=== PATIENT | female | born 1945 | race Caucasian/White ===

== ENCOUNTER 2020-04-03 06:09 | Day surgery (SDC) | payer MEDICARE, BC ==
[2020-04-02 14:33] LABS: BASOPHILS # (AUTO) 0.1 X10'3 (0-0.2); BASOPHILS % (AUTO) 0.9 % (0-1); EOSINOPHILS # (AUTO) 0.2 X10'3 (0-0.9); EOSINOPHILS % (AUTO) 2.6 % (0-6); HEMATOCRIT 41.7 % (35.0-45.0); HEMOGLOBIN 13.7 g/dl (12.0-16.0); LYMPHOCYTES # (AUTO) 2.5 X10'3 (1.1-4.8); LYMPHOCYTES % (AUTO) 36.5 % (21-51); MEAN CORPUSCULAR HEMOGLOBIN 31.3 PG (27.0-31.0); MEAN CORPUSCULAR HGB CONC 32.8 g/dL (33.0-36.5); MEAN CORPUSCULAR VOLUME 95.4 FL (78-98); MEAN PLATELET VOLUME 9.6 FL (7.4-10.4); MONOCYTES # (AUTO) 0.6 X10'3 (0-0.9); NEUTROPHILS # (AUTO) 3.5 X10'3 (1.8-7.7); PLATELET COUNT 179 X10'3 (140-440); RED BLOOD COUNT 4.37 X10'6 (4.20-5.60); RED CELL DISTRIBUTION WIDTH 13.7 % (11.5-14.5); WHITE BLOOD COUNT 6.9 X10'3 (4.5-11.0)
[2020-04-02 14:41] LABS: ALBUMIN 3.5 G/DL (3.4-5.0); ANION GAP 4 (8-16); BLOOD UREA NITROGEN 23 MG/DL (7-18); BUN/CREATININE RATIO 16.9 (6.6-38.0); CALCIUM 9.4 MG/DL (8.5-10.1); CHLORIDE 105 MMOL/L (99-107); CREATININE 1.36 MG/DL (0.40-0.90); GLUCOSE 93 MG/DL (70-104); POTASSIUM 4.1 MMOL/L (3.5-5.1); SODIUM 142 MMOL/L (135-145); TOTAL CARBON DIOXIDE 32.9 MMOL/L (24-32); eGFR 38 ML/MIN
[2020-04-02 14:43] LABS: PARTIAL THROMBOPLASTIN TIME 25 SECONDS (22-32)
[~2020-04-03] VITALS: Ht 165.1 cm; Wt 89.4 kg
[2020-04-03] VITALS (13 sets, daily range): BP systolic 135–169; BP diastolic 40–57
[2020-04-03] MEDS ORDERED: LORazepam 0.5 MG tablet PO PRN (06:50)
[2020-04-03] MEDS ORDERED: diphenhydrAMINE 25mg capsule PO PRN (06:50)
[2020-04-03] MEDS ORDERED: normal saline 1,000 ML IV SCH (06:50)
[2020-04-03] MEDS ORDERED: LIDOcaine/PRILOcaine 5gm cream TP ONE (07:15)
[2020-04-03] MEDS ORDERED: TRIA1CAP6 PO (07:22)
[2020-04-03] MEDS ORDERED: LEVO125T8 PO (07:27)
[2020-04-03] MEDS ORDERED: nitroGLYCERIN-Tridil 50MG/D5W 250 ML IV ONE (07:27)
[2020-04-03] MEDS ORDERED: OMEP20TA23 PO (07:27)
[2020-04-03] MEDS ORDERED: midazolam 2 mg/2 ml injection ONE (07:28)
[2020-04-03] MEDS ORDERED: LIDOcaine 1% (10mg/ml)w/preservative injection 20ml MDV ONE (07:28)
[2020-04-03] MEDS ORDERED: heparin 1,000unit/ml 10ml vial 10 ML ONE (07:28)
[2020-04-03] MEDS ORDERED: iohexol 350 MG/ML 50ML vial IV ONE (07:28)
[2020-04-03] MEDS ORDERED: ASCO-283 PO (07:28)
[2020-04-03] MEDS ORDERED: verapamil 2.5 mg/ml inj IV ONE (07:28)
[2020-04-03] MEDS ORDERED: iohexol 350MG/ML 100ml bottle IV ONE (07:28)
[2020-04-03] MEDS ORDERED: fentaNYL/PF 50MCG/1 ML 2ML syringe ONE (07:28)
[2020-04-03] MEDS ORDERED: CALC1CAP18 PO (07:30)
[2020-04-03] MEDS ORDERED: MULT-1085 PO (07:31)
[2020-04-03] MEDS ORDERED: OMEG1CAP13 PO (07:33)
[2020-04-03] MEDS ORDERED: OLAN5TAB5 PO (07:34)
[2020-04-03] MEDS ORDERED: CLOM50CA2 PO (07:34)
[2020-04-03] MEDS ORDERED: ASPI-1265 PO (07:35)
[2020-04-03] MEDS ORDERED: ATEN-27 PO (07:36)
[2020-04-03] MEDS ORDERED: ROSU40TA PO (07:37)
[2020-04-03] MEDS ORDERED: atropine 0.1mg/ml 10ml syringe ONE (08:18)
[2020-04-03 08:56] LABS: ISTAT HGB ART 12.9 g/dl (12.0-16.0); ISTAT Hct ART 38 %PCV (35-48); ISTAT O2 SATURATION ARTERIAL 96 % (95-98); ISTAT SOURCE ART
[2020-04-03 08:56] LABS: ISTAT Hct MIX 37 %PCV (35-48); ISTAT O2 SATURATION MIX VENOUS 74 % (60-80); ISTAT SOURCE MIX
[2020-04-03] MEDS ORDERED: HYDROcodone/acetaminophen 10/325mg tab PO PRN (09:10)
[2020-04-03] MEDS ORDERED: normal saline 1000ml 1,000 ML IV SCH (09:10)
[2020-04-03] MEDS ORDERED: HYDROcodone/acetaminophen 5mg/325mg tablet PO PRN (09:10)
[2020-04-03] MEDS: ACETYLCYSTEINE 200 MG/1 ML 4 ML ORAL SOLUTION PO SCH ×2 (09:27→14:11)
== END 2020-04-03 15:00 | disposition home or self-care (01) ==
LOC: U 06:09 → SSTAY O 15:00
PROVIDERS: ATTEND Internal Medicine Cardiovascular Disease
DX: R94.39 Abnormal result of other cardiovascular function study (principal); I25.10 Atherosclerotic heart disease of native coronary artery without angina pectoris; I10 Essential (primary) hypertension; E78.5 Hyperlipidemia, unspecified; E03.9 Hypothyroidism, unspecified; E66.9 Obesity, unspecified; Z68.33 Body mass index [BMI] 33.0-33.9, adult; Z90.710 Acquired absence of both cervix and uterus; Z95.5 Presence of coronary angioplasty implant and graft; Z79.899 Other long term (current) drug therapy; Z79.82 Long term (current) use of aspirin; Z87.891 Personal history of nicotine dependence; Z82.49 Family history of ischemic heart disease and other diseases of the circulatory system; Z80.0 Family history of malignant neoplasm of digestive organs; Z82.3 Family history of stroke; Z79.01 Long term (current) use of anticoagulants
CPT/HCPCS: 36415; 80048; 82803; 85014; 85025; 85610; 85730; 93005; 93460; 93567; 99152; 99153; C1769; C1894; J0461; J1644; J2001; J2250; J3010; J7030; Q0163; Q9967; A5120; J3490

== ENCOUNTER 2020-10-07 06:08 | Day surgery (SDC) | payer MEDICARE, BC ==
[2020-10-06 14:20] LABS: BASOPHILS # (AUTO) 0.1 X10'3 (0-0.2); EOSINOPHILS # (AUTO) 0.1 X10'3 (0-0.9); EOSINOPHILS % (AUTO) 1.4 % (0-6); HEMATOCRIT 43.7 % (35.0-45.0); HEMOGLOBIN 14.6 g/dl (12.0-16.0); LYMPHOCYTES # (AUTO) 2.2 X10'3 (1.1-4.8); MEAN CORPUSCULAR HEMOGLOBIN 31.3 PG (27.0-31.0); MEAN CORPUSCULAR HGB CONC 33.4 g/dL (33.0-36.5); MEAN CORPUSCULAR VOLUME 93.8 FL (78-98); MEAN PLATELET VOLUME 7.8 FL (7.4-10.4); MONOCYTES # (AUTO) 0.8 X10'3 (0-0.9); MONOCYTES % (AUTO) 10.6 % (2-12); NEUTROPHILS # (AUTO) 4.1 X10'3 (1.8-7.7); PLATELET COUNT 326 X10'3 (140-440); RED BLOOD COUNT 4.66 X10'6 (4.20-5.60); RED CELL DISTRIBUTION WIDTH 13.2 % (11.5-14.5); WHITE BLOOD COUNT 7.3 X10'3 (4.5-11.0)
[2020-10-06 14:31] LABS: ANION GAP 6 (8-16); BLOOD UREA NITROGEN 13 MG/DL (7-18); BUN/CREATININE RATIO 9.1 (6.6-38.0); CALCIUM 11.2 MG/DL (8.5-10.1); CHLORIDE 99 MMOL/L (99-107); CREATININE 1.43 MG/DL (0.40-0.90); GLUCOSE 94 MG/DL (70-104); POTASSIUM 4.2 MMOL/L (3.5-5.1); SODIUM 136 MMOL/L (135-145); TOTAL CARBON DIOXIDE 31.1 MMOL/L (24-32); eGFR 36 ML/MIN
[2020-10-06 14:34] LABS: PARTIAL THROMBOPLASTIN TIME 24 SECONDS (22-32)
[2020-10-07] VITALS (10 sets, daily range): BP systolic 108–162; BP diastolic 39–94
[~2020-10-07] VITALS: Ht 162.6 cm; Wt 83.2 kg
[~2020-10-07 06:08] MED LIST: ASCO-283 PO; ASPI-1265 PO; ATEN-27 PO; CALC1CAP18 PO; CLOM50CA2 PO; LEVO125T8 PO; MULT-1085 PO; OLAN5TAB5 PO; OMEG1CAP13 PO; OMEP20TA23 PO; ROSU40TA PO; TRIA1CAP6 PO
[2020-10-07] MEDS ORDERED: TRAZ-251 PO (06:42)
[2020-10-07] MEDS ORDERED: AMLO2.5T5 PO (06:42)
[2020-10-07] MEDS ORDERED: VENL37.589 PO (06:42)
[2020-10-07] MEDS ORDERED: LAMO100T PO (06:42)
[2020-10-07] MEDS ORDERED: normal saline 1000ml 1,000 ML IV SCH (07:05)
[2020-10-07] MEDS ORDERED: ceFAZolin 2gm in dextrose, iso 50 ML IV ONE ×2 (07:05→08:01)
[2020-10-07] MEDS ORDERED: ceFAZolin 1000mg inj ONE (07:20)
[2020-10-07] MEDS ORDERED: fentaNYL/PF 50MCG/1 ML 2ML syringe ONE ×2 (07:20→09:14)
[2020-10-07] MEDS ORDERED: midazolam 2 mg/2 ml injection ONE ×2 (07:20→09:13)
[2020-10-07] MEDS ORDERED: LIDOcaine 1% W/epiNEPHrine 1:100,000 20ml vial ONE (07:20)
--- NOTE | 2020-10-07 07:58 | NUR ---
Pt left floor for procedure.
--- NOTE | 2020-10-07 10:00 | NUR ---
pt back from procedure.
[2020-10-07] MEDS ORDERED: normal saline 1000ml 1,000 ML IV ONE (10:15)
[2020-10-07] MEDS ORDERED: HYDROcodone/acetaminophen 5mg/325mg tablet PO PRN (10:15)
[2020-10-07] MEDS ORDERED: HYDROcodone/acetaminophen 10/325mg tab PO PRN (10:15)
--- NOTE | 2020-10-07 10:50 | NUR ---
Pt off floor for CXR
[2020-10-07] MEDS ORDERED: vancomycin/NS 1 GM ADD-VANTAGE 250 ML X 1 DOSE IV ONE (11:00)
--- NOTE | 2020-10-07 11:12 | NUR ---
Pt back in room from CXR.
--- NOTE | 2020-10-07 11:31 | NUR ---
pt requested to stay in W/C, sitting up on home tablet device. monitors on. IV antibiotics infusing as ordered, pt denies pain, denies cp.
--- NOTE | 2020-10-07 14:04 | NUR ---
Received patient from Tosha SILVA. antibiotic infusion complete, site cdi, pressure dressing in place. Vitals stable.
[2020-10-07] MEDS ORDERED: sod chloride 0.9% 10ml flush syringe IV SCH (16:00)
== END 2020-10-07 15:00 | disposition home or self-care (01) ==
LOC: SSTAY O 06:08
PROVIDERS: ATTEND Internal Medicine Cardiovascular Disease
DX: I49.5 Sick sinus syndrome (principal); I25.10 Atherosclerotic heart disease of native coronary artery without angina pectoris; I10 Essential (primary) hypertension; E78.5 Hyperlipidemia, unspecified; Z95.5 Presence of coronary angioplasty implant and graft; Z79.01 Long term (current) use of anticoagulants; Z79.899 Other long term (current) drug therapy
CPT/HCPCS: 33208; 36415; 71046; 80048; 85025; 85610; 85730; 93005; 99152; 99153; C1785; C1894; C1898; J0690; J2250; J3010; J3370; J7030; A4565; A4620; A6449

== ENCOUNTER 2023-04-18 19:08 | Emergency (ER) | payer MEDICARE, BC ==
[~2023-04-18] VITALS: Ht 162.6 cm; Wt 93.5 kg
[~2023-04-18 19:08] MED LIST changes: +AMLO2.5T5 PO; -ATEN-27 PO; +LAMO100T PO; +OMEG-5 PO; -OMEG1CAP13 PO; +TRAZ-251 PO; -TRIA1CAP6 PO; +TRIA1CAP88 PO; +VENL37.589 PO
[2023-04-18 19:37] LABS: BASOPHILS # (AUTO) 0.1 X10'3 (0-0.2); BASOPHILS % (AUTO) 1.4 % (0-1); EOSINOPHILS # (AUTO) 0.1 X10'3 (0-0.9); EOSINOPHILS % (AUTO) 1.7 % (0-6); HEMATOCRIT 44.3 % (35.0-45.0); HEMOGLOBIN 15.1 g/dl (12.0-16.0); LYMPHOCYTES # (AUTO) 2.7 X10'3 (1.1-4.8); MEAN CORPUSCULAR HEMOGLOBIN 31.5 PG (27.0-31.0); MEAN CORPUSCULAR HGB CONC 34.1 g/dL (33.0-36.5); MEAN CORPUSCULAR VOLUME 92.3 FL (78-98); MEAN PLATELET VOLUME 7.7 FL (7.4-10.4); MONOCYTES # (AUTO) 0.9 X10'3 (0-0.9); MONOCYTES % (AUTO) 11.4 % (2-12); NEUTROPHILS # (AUTO) 4.3 X10'3 (1.8-7.7); NEUTROPHILS % (AUTO) 52.5 % (42-75); PLATELET COUNT 181 X10'3 (140-440); RED CELL DISTRIBUTION WIDTH 13.8 % (11.5-14.5); WHITE BLOOD COUNT 8.2 X10'3 (4.5-11.0)
[2023-04-18 19:44] LABS: ALANINE AMINOTRANSFERASE 28 U/L (12-78); ALBUMIN 3.8 G/DL (3.4-5.0); ALBUMIN/GLOBULIN RATIO 1.2 (1.1-1.5); ALKALINE PHOSPHATASE 80 IU/L (46-116); ANION GAP 6 (8-16); ASPARTATE AMINO TRANSFERASE 23 U/L (10-37); BILIRUBIN,TOTAL 1.2 MG/DL (0.1-1.0); BLOOD UREA NITROGEN 12 MG/DL (7-18); BUN/CREATININE RATIO 10.9 (10.0-20.0); CHLORIDE 97 MMOL/L (99-107); GLUCOSE 105 MG/DL (70-104); POTASSIUM 3.4 MMOL/L (3.5-5.1); SODIUM 133 MMOL/L (135-145); TOTAL CARBON DIOXIDE 29.6 MMOL/L (24-32); eGFR 48 ML/MIN
[2023-04-18] MEDS ORDERED: normal saline 1000ml 1,000 ML IV ONE (20:25)
[2023-04-18] MEDS ORDERED: iohexol 300mg/ml 100ml inj. ONE (20:34)
[2023-04-18 20:39] LABS: LIPASE 87 U/L (73-393)
--- NOTE | 2023-04-18 21:47 | NUR ---
NOTIFIED DR CARLISLE OF PTS BP 196/83
[2023-04-18] MEDS ORDERED: PANT20TA18 PO (22:38)
[2023-04-18 22:54] VITALS: BP 162/78
== END 2023-04-18 22:56 | disposition home or self-care (01) ==
LOC: ER 19:09
DX: K29.00 Acute gastritis without bleeding (principal); K21.9 Gastro-esophageal reflux disease without esophagitis
CPT/HCPCS: 36415; 71045; 74177; 80053; 83690; 83735; 83880; 84484; 85025; 93005; 99285; J3490; J7030; Q9967

== ENCOUNTER 2023-07-23 21:24 | Emergency (ER) | payer MEDICARE, BC ==
[~2023-07-23] VITALS: Ht 162.6 cm; Wt 90.9 kg
[~2023-07-23 21:24] MED LIST changes: +PANT20TA18 PO
[2023-07-23 21:25] VITALS: TEMP 98.2
[2023-07-23 22:44] LABS: ALANINE AMINOTRANSFERASE 15 U/L (12-78); ALBUMIN 3.6 G/DL (3.4-5.0); ALBUMIN/GLOBULIN RATIO 1.2 (1.1-1.5); ALKALINE PHOSPHATASE 71 IU/L (46-116); ANION GAP 13 (8-16); ASPARTATE AMINO TRANSFERASE 23 U/L (10-37); BILIRUBIN,TOTAL 1.1 MG/DL (0.1-1.0); BLOOD UREA NITROGEN 8 MG/DL (7-18); BUN/CREATININE RATIO 8.3 (10.0-20.0); CALCIUM 9.8 MG/DL (8.5-10.1); CHLORIDE 105 MMOL/L (99-107); CREATININE 0.96 MG/DL (0.40-0.90); GLUCOSE 109 MG/DL (70-104); SODIUM 141 MMOL/L (135-145); TOTAL CARBON DIOXIDE 23.2 MMOL/L (24-32); TOTAL PROTEIN 6.7 G/DL (6.4-8.2); eCRCL 40 ML/MIN; eGFR 56 ML/MIN
[2023-07-23 22:46] LABS: BASOPHILS % (AUTO) 0.5 % (0-1); EOSINOPHILS # (AUTO) 0.1 X10'3 (0-0.9); EOSINOPHILS % (AUTO) 1.2 % (0-6); HEMATOCRIT 47.2 % (35.0-45.0); HEMOGLOBIN 15.7 g/dl (12.0-16.0); LYMPHOCYTES # (AUTO) 1.3 X10'3 (1.1-4.8); LYMPHOCYTES % (AUTO) 17.1 % (21-51); MEAN CORPUSCULAR HEMOGLOBIN 31.5 PG (27.0-31.0); MEAN CORPUSCULAR HGB CONC 33.3 g/dL (33.0-36.5); MEAN CORPUSCULAR VOLUME 94.7 FL (78-98); MEAN PLATELET VOLUME 8.2 FL (7.4-10.4); MONOCYTES # (AUTO) 0.7 X10'3 (0-0.9); MONOCYTES % (AUTO) 9.5 % (2-12); NEUTROPHILS # (AUTO) 5.6 X10'3 (1.8-7.7); NEUTROPHILS % (AUTO) 71.7 % (42-75); PLATELET COUNT 155 X10'3 (140-440); RED BLOOD COUNT 4.98 X10'6 (4.20-5.60); RED CELL DISTRIBUTION WIDTH 14.4 % (11.5-14.5); WHITE BLOOD COUNT 7.8 X10'3 (4.5-11.0)
[2023-07-23 22:54] LABS: POTASSIUM 4.1 MMOL/L (3.5-5.1); PRO BRAIN NATRIURETIC PEPTIDE 513 PG/ML (0-450)
[2023-07-24] LABS: BILIRUBIN,URINE NEGATIVE (Neg); CLARITY,URINE SLIGHTLY CLOUDY (Clear); COLOR,URINE YELLOW (Yellow); GLUCOSE, URINE NEGATIVE (Neg); KETONES,URINE TRACE mg/dl (Neg); LEUKOCYTE ESTERASE ,URINE NEGATIVE (Neg); NITRITES, URINE NEGATIVE (Neg); OCCULT BLOOD,URINE NEGATIVE (Neg); PROTEIN,URINE TRACE mg/dl (Neg)
[2023-07-24 00:32] LABS: UA COLLECTION TYPE STRAIGHT CATH
[2023-07-24 00:36] LABS: SQUAMOUS EPITHELIAL CELL,UR FEW /LPF (FEW)
[2023-07-24 00:38] LABS: BACTERIA,URINE 2+ /HPF (Neg); CELLULAR CAST 0-4 /LPF (NEGATIVE); HYALINE CASTS 0-3 /LPF (NEGATIVE); MUCUS STRANDS MANY /LPF (Neg); RBC,URINE 0-2 /HPF (0-2); RENAL CELLS, URINE FEW /HPF
[2023-07-24 00:59] VITALS: BP 132/90; PULSE 61; RESP 16; O2SAT 96
--- NOTE | 2023-07-24 03:06 | NUR ---
NOTIFIED BY LAB OF ELEVATED TROPONIN, NOTIFIED RICARDO WOO. CHILO NOTIFIED DR. TRAN OF THIS RESULT. THE PATIENT HAS BEEN DISCHARGE.
--- NOTE | 2023-07-24 03:14 | NUR ---
CALLED JAYANT AND TALKED TO HER ABOUT THE LAB RESULT AND WHAT THIS MEANS AND ADVISED HER TO COME BACK INTO THE HOSPITAL FOR ADMISSION TO EVALUATE HER HEART. SHE IS NOT SURE IF SHE WILL COME IN OR NOT. INFORMED HER THAT I CANNOT MAKE HER COME IN BUT THAT IT IS MY DUTY TO INFORM HER OF THE RESULTS AND THE IMPORTANCE OF HER COMING BACK IN FOR TESTING OF HER HEART. SHE UNDERSTANDS. SHE IS WITH HER SISTER AND I TALKED TO HER WELL.
== END 2023-07-24 02:22 | disposition home or self-care (01) ==
LOC: ER 21:24
DX: Z04.3 Encounter for examination and observation following other accident (principal); Z79.899 Other long term (current) drug therapy; Z79.82 Long term (current) use of aspirin; W19.XXXA Unspecified fall, initial encounter; Y93.89 Activity, other specified; Y92.89 Other specified places as the place of occurrence of the external cause; Y99.8 Other external cause status
CPT/HCPCS: 36415; 70450; 71045; 72125; 80053; 81001; 81003; 83880; 84484; 85025; 87088; 93005; 99285

== ENCOUNTER 2023-07-24 06:37 | Inpatient (IN) | payer MEDICARE, BC ==
[~2023-07-24] VITALS: Ht 165.1 cm; Wt 86.4 kg
[2023-07-24 07:50] LABS: BASOPHILS # (AUTO) 0.1 X10'3 (0-0.2); BASOPHILS % (AUTO) 1.1 % (0-1); EOSINOPHILS # (AUTO) 0.1 X10'3 (0-0.9); EOSINOPHILS % (AUTO) 1.3 % (0-6); HEMATOCRIT 44.9 % (35.0-45.0); LYMPHOCYTES % (AUTO) 30.6 % (21-51); MEAN CORPUSCULAR HEMOGLOBIN 31.3 PG (27.0-31.0); MEAN CORPUSCULAR HGB CONC 33.4 g/dL (33.0-36.5); MEAN CORPUSCULAR VOLUME 93.7 FL (78-98); MEAN PLATELET VOLUME 8.2 FL (7.4-10.4); MONOCYTES # (AUTO) 0.7 X10'3 (0-0.9); MONOCYTES % (AUTO) 10.2 % (2-12); NEUTROPHILS # (AUTO) 3.8 X10'3 (1.8-7.7); NEUTROPHILS % (AUTO) 56.8 % (42-75); PLATELET COUNT 152 X10'3 (140-440); RED BLOOD COUNT 4.79 X10'6 (4.20-5.60); RED CELL DISTRIBUTION WIDTH 13.9 % (11.5-14.5); WHITE BLOOD COUNT 6.7 X10'3 (4.5-11.0)
[2023-07-24 08:03] LABS: ALANINE AMINOTRANSFERASE 22 U/L (12-78); ALBUMIN 3.6 G/DL (3.4-5.0); ALBUMIN/GLOBULIN RATIO 1.2 (1.1-1.5); ALKALINE PHOSPHATASE 71 IU/L (46-116); ANION GAP 6 (8-16); ASPARTATE AMINO TRANSFERASE 20 U/L (10-37); BILIRUBIN,TOTAL 1.4 MG/DL (0.1-1.0); BLOOD UREA NITROGEN 8 MG/DL (7-18); BUN/CREATININE RATIO 8.3 (10.0-20.0); CALCIUM 9.6 MG/DL (8.5-10.1); CHLORIDE 104 MMOL/L (99-107); CREATININE 0.96 MG/DL (0.40-0.90); GLUCOSE 106 MG/DL (70-104); POTASSIUM 3.7 MMOL/L (3.5-5.1); SODIUM 139 MMOL/L (135-145); TOTAL CARBON DIOXIDE 28.9 MMOL/L (24-32); TOTAL PROTEIN 6.6 G/DL (6.4-8.2); eCRCL 42 ML/MIN; eGFR 56 ML/MIN
[2023-07-24 08:11] LABS: PRO BRAIN NATRIURETIC PEPTIDE 1028 PG/ML (0-450)
[2023-07-24] MEDS ORDERED: magnesium 4gm in 100ml NS 100 ML IV PRN (08:30)
[2023-07-24] MEDS ORDERED: potassium Cl 40MEQ/1/2NS 520ml 520 ML IV PRN (08:30)
[2023-07-24] MEDS ORDERED: magnesium 2GM in 50ml NS 50 ML IV PRN (08:30)
[2023-07-24] MEDS ORDERED: ondansetron/PF 4mg/2ml inj IV PRN (08:30)
[2023-07-24] MEDS: normal saline 1000ml 1,000 ML IV SCH (08:30)
[2023-07-24] MEDS ORDERED: potassium Cl 20 mEq SR tablet PO PRN ×2 (08:30)
[2023-07-24] MEDS ORDERED: magnesium Cl slow-release 64mg tablet PO PRN (08:30)
[2023-07-24] MEDS ORDERED: acetaminophen 325mg tablet PO PRN (08:30)
--- NOTE | 2023-07-24 08:40 | NUR ---
Paged signal technician. Dr. Freitas at bedside talking to the patient
--- NOTE | 2023-07-24 09:02 | NUR ---
missile and missile checkout technician at bedside
[2023-07-24 15:12] LABS: BILIRUBIN,URINE NEGATIVE (Neg); CLARITY,URINE SLIGHTLY CLOUDY (Clear); COLOR,URINE YELLOW (Yellow); GLUCOSE, URINE NEGATIVE (Neg); KETONES,URINE NEGATIVE (Neg); LEUKOCYTE ESTERASE ,URINE TRACE (Neg); NITRITES, URINE NEGATIVE (Neg); OCCULT BLOOD,URINE NEGATIVE (Neg); PH,URINE 6.5 (4.8-8.0); PROTEIN,URINE NEGATIVE (Neg)
[2023-07-24 15:15] LABS: UA COLLECTION TYPE CLN CATCH MIDSTREAM
[2023-07-24 15:19] LABS: BACTERIA,URINE FEW /HPF (Neg); MUCUS STRANDS FEW /LPF (Neg); RBC,URINE 0 /HPF (0-2); SQUAMOUS EPITHELIAL CELL,UR MANY /LPF (FEW); WBC,URINE 0-4 /HPF (0-4)
[2023-07-24] MEDS: acetaminophen 325mg tablet PO PRN ×2 (19:10→20:50)
[2023-07-24] MEDS: enoxaparin 40mg/0.4ml syringe SQ SCH (20:50)
--- NOTE | 2023-07-24 23:23 | NUR ---
Received report from Er nurse Seun. Patient to follow shortly.
--- NOTE | 2023-07-24 23:30 | NUR ---
Patient arrived to floor from Er via w/c. A&O, in no pain or distress. Assisted into bed and 2 RN skin check completed.
[2023-07-24 23:40] VITALS: RESP 15; O2SAT 96
[2023-07-24 23:45] VITALS: BP 148/60; PULSE 71; TEMP 98.1; O2SAT 96
[2023-07-25 06:05] LABS: WHITE BLOOD COUNT 6.2 X10'3 (4.5-11.0)
[2023-07-25 06:08] LABS: BASOPHILS # (AUTO) 0.1 X10'3 (0-0.2); BASOPHILS % (AUTO) 1.2 % (0-1); EOSINOPHILS # (AUTO) 0.2 X10'3 (0-0.9); EOSINOPHILS % (AUTO) 3.5 % (0-6); HEMATOCRIT 43.1 % (35.0-45.0); HEMOGLOBIN 14.5 g/dl (12.0-16.0); LYMPHOCYTES # (AUTO) 2.4 X10'3 (1.1-4.8); LYMPHOCYTES % (AUTO) 38.6 % (21-51); MEAN CORPUSCULAR HEMOGLOBIN 31.8 PG (27.0-31.0); MEAN CORPUSCULAR HGB CONC 33.6 g/dL (33.0-36.5); MEAN CORPUSCULAR VOLUME 94.5 FL (78-98); MEAN PLATELET VOLUME 9.5 FL (7.4-10.4); MONOCYTES # (AUTO) 0.7 X10'3 (0-0.9); NEUTROPHILS # (AUTO) 2.8 X10'3 (1.8-7.7); NEUTROPHILS % (AUTO) 45.7 % (42-75); PLATELET COUNT 143 X10'3 (140-440); RED BLOOD COUNT 4.56 X10'6 (4.20-5.60)
[2023-07-25 06:32] LABS: ALANINE AMINOTRANSFERASE 14 U/L (12-78); ALBUMIN 3.1 G/DL (3.4-5.0); ALBUMIN/GLOBULIN RATIO 1.1 (1.1-1.5); ALKALINE PHOSPHATASE 63 IU/L (46-116); ANION GAP 9 (8-16); ASPARTATE AMINO TRANSFERASE 22 U/L (10-37); BILIRUBIN,TOTAL 1.2 MG/DL (0.1-1.0); BLOOD UREA NITROGEN 10 MG/DL (7-18); BUN/CREATININE RATIO 11.5 (10.0-20.0); CALCIUM 9.3 MG/DL (8.5-10.1); CHLORIDE 107 MMOL/L (99-107); CREATININE 0.87 MG/DL (0.40-0.90); GLUCOSE 96 MG/DL (70-104); POTASSIUM 3.6 MMOL/L (3.5-5.1); SODIUM 141 MMOL/L (135-145); TOTAL CARBON DIOXIDE 25.2 MMOL/L (24-32); TOTAL PROTEIN 5.8 G/DL (6.4-8.2); eCRCL 46 ML/MIN; eGFR 63 ML/MIN
--- NOTE | 2023-07-25 07:59 | NUR ---
Patient in room [facility]TH[facility] 4023. I have received report from ILEANA SILVA and had the opportunity to ask questions and assume patient care.
[2023-07-25 09:00] VITALS: BP 139/69; PULSE 104; RESP 16; TEMP 97.4; O2SAT 93
[2023-07-25 13:00] VITALS: RESP 16; O2SAT 97
[2023-07-25 15:20] VITALS: BP 136/59; PULSE 85; RESP 16; TEMP 98.4; O2SAT 91
[2023-07-25] MEDS: nystatin 15 GM powder TP SCH ×2 (15:39→20:27)
[2023-07-25 18:00] VITALS: BP 179/88; PULSE 60; RESP 18; TEMP 97.8; O2SAT 96
--- NOTE | 2023-07-25 18:26 | NUR ---
Problems reprioritized. Patient report given to vilma hammonds, questions answered & plan of care reviewed with .
[2023-07-25 20:00] VITALS: RESP 18; O2SAT 94
[2023-07-25] MEDS: lamoTRIgine 100mg tablet PO SCH (20:25)
[2023-07-25] MEDS: carvedilol 6.25mg tablet PO SCH (20:27)
[2023-07-25] MEDS: enoxaparin 40mg/0.4ml syringe SQ SCH (20:28)
[2023-07-25] MEDS ORDERED: aspirin 81mg tab.chew PO SCH (21:00)
[2023-07-25 22:00] VITALS: BP 159/63; PULSE 60; RESP 20; TEMP 98.9; O2SAT 96
[2023-07-26] MEDS: acetaminophen 325mg tablet PO PRN (00:23)
[2023-07-26 06:00] VITALS: BP 160/88; PULSE 70; RESP 18; TEMP 97.3; O2SAT 95
--- NOTE | 2023-07-26 06:29 | NUR ---
Problems reprioritized. Patient report given, questions answered & plan of care reviewed with RICARDO CAMILO.
[2023-07-26 07:07] LABS: BASOPHILS # (AUTO) 0.1 X10'3 (0-0.2); BASOPHILS % (AUTO) 1.4 % (0-1); EOSINOPHILS # (AUTO) 0.3 X10'3 (0-0.9); EOSINOPHILS % (AUTO) 5.5 % (0-6); HEMATOCRIT 41.8 % (35.0-45.0); HEMOGLOBIN 13.9 g/dl (12.0-16.0); LYMPHOCYTES # (AUTO) 2.3 X10'3 (1.1-4.8); LYMPHOCYTES % (AUTO) 42.6 % (21-51); MEAN CORPUSCULAR HEMOGLOBIN 31.4 PG (27.0-31.0); MEAN CORPUSCULAR HGB CONC 33.3 g/dL (33.0-36.5); MEAN CORPUSCULAR VOLUME 94.3 FL (78-98); MEAN PLATELET VOLUME 8.7 FL (7.4-10.4); MONOCYTES # (AUTO) 0.6 X10'3 (0-0.9); NEUTROPHILS # (AUTO) 2.1 X10'3 (1.8-7.7); NEUTROPHILS % (AUTO) 39.5 % (42-75); PLATELET COUNT 161 X10'3 (140-440); RED BLOOD COUNT 4.44 X10'6 (4.20-5.60); RED CELL DISTRIBUTION WIDTH 14.2 % (11.5-14.5); WHITE BLOOD COUNT 5.4 X10'3 (4.5-11.0)
[2023-07-26 07:26] LABS: ALANINE AMINOTRANSFERASE 19 U/L (12-78); ALBUMIN 2.9 G/DL (3.4-5.0); ALBUMIN/GLOBULIN RATIO 1.1 (1.1-1.5); ALKALINE PHOSPHATASE 55 IU/L (46-116); ANION GAP 6 (8-16); ASPARTATE AMINO TRANSFERASE 15 U/L (10-37); BILIRUBIN,TOTAL 1.3 MG/DL (0.1-1.0); BLOOD UREA NITROGEN 8 MG/DL (7-18); BUN/CREATININE RATIO 9.2 (10.0-20.0); CALCIUM 9.3 MG/DL (8.5-10.1); CHLORIDE 107 MMOL/L (99-107); CREATININE 0.87 MG/DL (0.40-0.90); GLUCOSE 92 MG/DL (70-104); POTASSIUM 3.4 MMOL/L (3.5-5.1); SODIUM 140 MMOL/L (135-145); TOTAL CARBON DIOXIDE 26.9 MMOL/L (24-32); TOTAL PROTEIN 5.5 G/DL (6.4-8.2); eCRCL 46 ML/MIN; eGFR 63 ML/MIN
[2023-07-26] MEDS ORDERED: atorvastatin 20mg tablet PO SCH (08:00)
[2023-07-26] MEDS ORDERED: pantoprazole 40mg Tablet.DR PO SCH (08:00)
[2023-07-26] MEDS ORDERED: levoTHYROXINE 125mcg tablet PO SCH (08:00)
[2023-07-26] MEDS: nystatin 15 GM powder TP SCH ×2 (08:00→13:00)
[2023-07-26] MEDS ORDERED: venlafaxine XR 37.5mg cap (Q24H) PO SCH (08:00)
[2023-07-26] MEDS: normal saline 1000ml 1,000 ML IV SCH (08:30)
[2023-07-26 10:00] VITALS: BP 152/70; PULSE 78; RESP 17; TEMP 98; O2SAT 96
[2023-07-26] MEDS: lamoTRIgine 100mg tablet PO SCH (11:09)
[2023-07-26] MEDS: carvedilol 6.25mg tablet PO SCH (11:10)
[2023-07-26] MEDS ORDERED: CARV-49 PO (15:26)
--- NOTE | 2023-07-26 16:57 | NUR ---
Patient discharged home. All medications sent to [facility] [address]. All belongings accounted for. VSS RR even and unlabored. IV removed. dressing CDI. Patient education provided.
--- NOTE | 2023-07-26 17:00 | NUR ---
I have reviewed and agree with interventions, assessments, and documentation by Azul Carlson LVN.
== END 2023-07-26 16:57 | disposition home or self-care (01) | DRG 280 ==
LOC: ER 06:38 → ED HOLD 08:30 → OBSVTOIN 08:30 → ORTHO 4S 23:33
PROVIDERS: ADMIT Internal Medicine; ATTEND Internal Medicine
DX: I11.0 Hypertensive heart disease with heart failure (principal); I21.A1 Myocardial infarction type 2; I50.33 Acute on chronic diastolic (congestive) heart failure; I50.32 Chronic diastolic (congestive) heart failure; I49.5 Sick sinus syndrome; R82.71 Bacteriuria; E78.5 Hyperlipidemia, unspecified; Z20.822 Contact with and (suspected) exposure to COVID-19; F41.9 Anxiety disorder, unspecified; E66.9 Obesity, unspecified; R82.81 Pyuria; E03.9 Hypothyroidism, unspecified; I25.10 Atherosclerotic heart disease of native coronary artery without angina pectoris; F32.A Depression, unspecified; Z95.0 Presence of cardiac pacemaker; Z90.710 Acquired absence of both cervix and uterus; Z95.5 Presence of coronary angioplasty implant and graft; Z79.899 Other long term (current) drug therapy; Z91.81 History of falling; Z68.31 Body mass index [BMI] 31.0-31.9, adult
CPT/HCPCS: 36415; 70450; 71045; 72125; 80053; 81001; 81003; 83605; 83880; 84484; 85025; 87040; 87081; 87088; 87811; 93005; 93306; 97161; 99285; G0378; J1650; J7030

== ENCOUNTER 2024-11-16 01:45 | Emergency (ER) | payer MEDICARE, BC ==
[~2024-11-16] VITALS: Ht 162.6 cm; Wt 92.3 kg
[~2024-11-16 01:45] MED LIST changes: -AMLO2.5T5 PO; +CARV-49 PO; -CLOM50CA2 PO; -OLAN5TAB5 PO; -PANT20TA18 PO; -TRAZ-251 PO
[2024-11-16 02:46] LABS: BASOPHILS % (AUTO) 0.5 % (0-1); EOSINOPHILS % (AUTO) 0.3 % (0-6); HEMATOCRIT 46.5 % (35.0-45.0); HEMOGLOBIN 15.5 g/dl (12.0-16.0); LYMPHOCYTES # (AUTO) 0.4 X10'3 (1.1-4.8); LYMPHOCYTES % (AUTO) 4.1 % (21-51); MEAN CORPUSCULAR HEMOGLOBIN 31.6 PG (27.0-31.0); MEAN CORPUSCULAR HGB CONC 33.4 g/dL (33.0-36.5); MEAN CORPUSCULAR VOLUME 94.6 FL (78-98); MEAN PLATELET VOLUME 8.9 FL (7.4-10.4); MONOCYTES # (AUTO) 0.6 X10'3 (0-0.9); MONOCYTES % (AUTO) 7.1 % (2-12); NEUTROPHILS # (AUTO) 7.7 X10'3 (1.8-7.7); PLATELET COUNT 133 X10'3 (140-440); RED BLOOD COUNT 4.91 X10'6 (4.20-5.60); RED CELL DISTRIBUTION WIDTH 13.9 % (11.5-14.5); WHITE BLOOD COUNT 8.8 X10'3 (4.5-11.0)
[2024-11-16 03:01] LABS: ALBUMIN 3.1 G/DL (3.4-5.0); ANION GAP 6 (8-16); BLOOD UREA NITROGEN 25 MG/DL (7-18); BUN/CREATININE RATIO 24.3 (10.0-20.0); CALCIUM 8.4 MG/DL (8.5-10.1); CHLORIDE 104 MMOL/L (99-107); CREATININE 1.03 MG/DL (0.40-0.90); GLUCOSE 108 MG/DL (70-104); MAGNESIUM 2.1 MG/DL (1.5-2.4); POTASSIUM 3.8 MMOL/L (3.5-5.1); SODIUM 138 MMOL/L (135-145); TOTAL CARBON DIOXIDE 28.2 MMOL/L (24-32); eCRCL 37 ML/MIN; eGFR 51 ML/MIN
[2024-11-16] MEDS: acetaminophen 325mg tablet PO ONE (03:07)
[2024-11-16] MEDS: normal saline 1000ml 1,000 ML IV ONE (03:37)
[2024-11-16] MEDS: ketorolac trometh 15mg/ml vial 15 MG/ML ML IV ONE (03:57)
[2024-11-16 05:23] LABS: BILIRUBIN,URINE SMALL (Neg); CLARITY,URINE CLEAR (Clear); COLOR,URINE YELLOW (Yellow); GLUCOSE, URINE NEGATIVE (Neg); KETONES,URINE NEGATIVE (Neg); LEUKOCYTE ESTERASE ,URINE NEGATIVE (Neg); NITRITES, URINE NEGATIVE (Neg); OCCULT BLOOD,URINE NEGATIVE (Neg); PROTEIN,URINE 30 mg/dl (Neg); UA COLLECTION TYPE STRAIGHT CATH; UROBILINOGEN,URINE 0.2 E.U/dL (0.2-1.0)
[2024-11-16 05:27] LABS: BACTERIA,URINE 2+ /HPF (Neg); FINE GRANULAR CAST 0-3 /LPF (NEGATIVE); MUCUS STRANDS MODERATE /LPF (Neg); RBC,URINE NONE SEEN /HPF (0-2); SQUAMOUS EPITHELIAL CELL,UR FEW /LPF (FEW); WBC,URINE 0-4 /HPF (0-4)
[2024-11-16 07:15] VITALS: PULSE 86; RESP 16; O2SAT 96
[2024-11-16] MEDS: ipratropium/albuterol 3ml nebule NEB ONE (07:15)
[2024-11-16 07:23] VITALS: PULSE 60; RESP 14; O2SAT 100
[2024-11-16 09:23] VITALS: BP 156/53; PULSE 82; RESP 16; TEMP 98.1; O2SAT 98
== END 2024-11-16 09:29 | disposition home or self-care (01) ==
LOC: ER 01:46
DX: M54.9 Dorsalgia, unspecified (principal); F03.90 Unspecified dementia, unspecified severity, without behavioral disturbance, psychotic disturbance, mood disturbance, and anxiety; Z95.0 Presence of cardiac pacemaker; Z98.890 Other specified postprocedural states; Z79.82 Long term (current) use of aspirin; W18.30XA Fall on same level, unspecified, initial encounter; Y93.89 Activity, other specified; Y92.89 Other specified places as the place of occurrence of the external cause; Y99.8 Other external cause status
CPT/HCPCS: 36415; 71045; 72131; 80048; 81001; 83735; 84145; 84484; 85025; 93005; 94640; 96361; 96374; 99285; C1758; J1885; J7030; Z7610; 94760; 96375